=== PATIENT | female | born 1950 | race Hispanic/Latino ===

== ENCOUNTER → 2018-01-06 | Outpatient (CLI) | payer OTHER | END | disposition home or self-care (01) | LOC: RAH 14:33 | PROVIDERS: ATTEND Internal Medicine | DX: Z12.31 Encounter for screening mammogram for malignant neoplasm of breast (principal) | CPT/HCPCS: 77067 ==

== ENCOUNTER → 2018-02-02 | Outpatient (CLI) | payer OTHER | END | disposition home or self-care (01) | LOC: RAH 12:46 | PROVIDERS: ATTEND Internal Medicine | DX: N60.02 Solitary cyst of left breast (principal) | CPT/HCPCS: 76641; 77065 ==